=== PATIENT | male | born 1955 | race Asian ===

== ENCOUNTER 2023-05-31 09:13 | Outpatient (CLI) | payer MEDICARE | END 2023-05-31 09:14 | disposition home or self-care (01) | LOC: CSHCP 09:13 | PROVIDERS: ATTEND Internal Medicine Critical Care Medicine | DX: J98.4 Other disorders of lung (principal); R76.8 Other specified abnormal immunological findings in serum | CPT/HCPCS: 94060; 94726; 94729; 94760 ==

== ENCOUNTER 2023-09-12 11:44 | Outpatient (CLI) | payer MEDICARE | END 2023-09-12 11:45 | disposition home or self-care (01) | LOC: CSHRAD 11:44 | PROVIDERS: ATTEND Family Medicine Sports Medicine | DX: M79.644 Pain in right finger(s) (principal); M25.561 Pain in right knee ==